=== PATIENT | female | born 1960 | race Caucasian/White ===

== ENCOUNTER 2017-06-12 08:13 | Day surgery (SDC) | payer BC ==
[2017-06-12] VITALS (9 sets, daily range): BP systolic 107–155; BP diastolic 70–97; PULSE 44–68; TEMP 98
[~2017-06-12] VITALS: Ht 165.1 cm; Wt 90.9 kg
[~2017-06-12 08:13] MED LIST: AMBIEN 5MG TABLE5 MG PO; COZAAR100 MG PO; KLOR-CON M2020 MEQ PO; LIPITOR 80MG80 MG PO; NORCO 325 MG-51 TAB PO; NORVASC 10MG10 MG PO; PROZAC40 MG PO; ZANAFLEX CAPSULE4 MG PO
[2017-06-12] MEDS ORDERED: HCTZ 25MG TAB25 MG PO (08:33)
[2017-06-12 08:41] LABS: HEMATOCRIT 40.6 % (37.0-47.0); HEMOGLOBIN 14.2 g/dl (12.5-16.0); MEAN CELL VOLUME 84 fl (80.0-100.0); MEAN CORPUSCULAR HEMOGLOBIN 29 pg (27.0-31.0); MEAN CORPUSCULAR HGB CONC 35 g/dl (33.0-37.0); PLATELET COUNT 224 K/mm3 (130-400); RED BLOOD COUNT 4.83 M/mm3 (4.10-5.30); WHITE BLOOD COUNT 7.5 K/mm3 (4.8-10.8)
[2017-06-12 08:42] LABS: CALCIUM 9.4 mg/dL (8.4-10.2); CREATININE, serum 0.67 mg/dL (0.52-1.25); POTASSIUM 3.4 mmol/L (3.4-5.0)
[2017-06-12 08:50] LABS: PROTHROMBIN TIME 11.4 SECONDS (9.7-12.8)
== END 2017-06-12 13:31 | disposition home or self-care (01) ==
LOC: COL.CAR 08:13
PROVIDERS: Internal Medicine Interventional Cardiology
DX: I25.10 Atherosclerotic heart disease of native coronary artery without angina pectoris (principal); R94.39 Abnormal result of other cardiovascular function study; I10 Essential (primary) hypertension; Z82.49 Family history of ischemic heart disease and other diseases of the circulatory system
CPT/HCPCS: C1760; C1894; J2250; J3010; Q9967